=== PATIENT | female | born 1960 | race Caucasian/White ===

== ENCOUNTER 2022-09-07 21:39 | Inpatient (IN) | payer BC, MEDICAID ==
[2022-09-07] MEDS ORDERED: Adenosine 12 MG/4 ML SDV ONE (21:52)
[2022-09-07] MEDS ORDERED: Adenosine 6 MG/2 ML SDV IVPUSH ONE (21:58)
[2022-09-07] MEDS ORDERED: Diltiazem 25 MG/5 ML SDV IVPUSH STA (22:01)
[2022-09-07 22:13] LABS: BASOPHILS ABSOLUTE AUTO 0.03 K/mm3 (0.01-0.08); BASOPHILS PERCENT AUTO 0.1 % (0.1-1.2); EOSINOPHILS ABSOLUTE AUTO 0.07 K/mm3 (0.04-0.36); EOSINOPHILS PERCENT AUTO 0.3 (0.7-5.8); HEMATOCRIT 45.3 % (34.1-44.9); HEMOGLOBIN 14.7 gm/dl (11.2-15.7); IMMATURE GRAN ABSOLUTE AUTO 0.07 K/mm3 (0.00-0.10); IMMATURE GRAN PERCENT AUTO 0.3 % (<=1.0); LYMPHOCYTES ABSOLUTE AUTO 2.28 K/mm3 (1.18-3.74); LYMPHOCYTES PERCENT AUTO 9.6 % (19.3-51.7); MEAN CORPUSCULAR HEMOGLOBIN 29.4 pg (25.6-32.2); MEAN CORPUSCULAR HGB CONC 32.5 g/dl (32.2-35.5); MEAN CORPUSCULAR VOLUME 90.6 fl (79.4-94.8); MEAN PLATELET VOLUME 10.3 fl (9.4-12.3); MONOCYTES ABSOLUTE AUTO 0.56 K/mm3 (0.24-0.36); MONOCYTES PERCENT AUTO 2.4 % (4.7-12.5); NEUTROPHILS ABSOLUTE AUTO 20.65 K/mm3 (1.56-6.13); NEUTROPHILS PERCENT AUTO 87.3 % (34.0-71.1); PLATELET COUNT,PLT 375 K/mm3 (182-369); WHITE BLOOD CELL COUNT,WBC 23.66 K/mm3 (3.98-10.04)
[2022-09-07] MEDS ORDERED: Diltiazem 125 MG in Sodium Chloride 0.9% 100 ML IV SCH (22:15)
[2022-09-07] MEDS ORDERED: Sodium Chloride 0.9% 1,000 ML IV SCH (22:15)
[2022-09-07 22:24] LABS: INR 1.12; PROTHROMBIN TIME 11.9 SECONDS (9.7-12.0)
[2022-09-07 22:26] LABS: PTT,PARTIAL THROMBOPLSTIN TIME 26.5 SECONDS (21.7-31.4)
[2022-09-07 22:29] LABS: D-DIMER QUANTITATIVE < 0.19 mg/L (0.19-0.50)
[2022-09-07 22:34] LABS: SLIDE REVIEW ABNORMAL SMEAR
[2022-09-07 22:40] LABS: A/G RATIO 1.1 (1-2); ALANINE AMINOTRANSFERASE,ALT 29 U/L (14-59); ALKALINE PHOSPHATASE 88 U/L (46-116); ANION GAP 18.3 (5-15); ASPARTATE AMNIOTRANSFERASE,AST 19 U/L (15-37); BILIRUBIN TOTAL 0.3 mg/dL (0.2-1.0); BLOOD UREA NITROGEN,BUN 9 mg/dL (7-18); BUN/CREATININE RATIO 8.2 (14-18); C-REACTIVE PROTEIN <0.2 mg/dL (<1.0); CALCIUM 8.7 mg/dL (8.5-10.1); CARBON DIOXIDE,CO2 20 mEq/L (21-32); CHLORIDE,CL 103 mEq/L (98-107); CREATININE 1.1 mg/dL (0.55-1.02); ESTIMATED GFR 57 mL/min (>60); ETHANOL BLOOD MEDICAL 0.08 gm% (0.00); GLUCOSE RANDOM 219 mg/dL (70-99); MAGNESIUM 1.8 mg/dL (1.8-2.4); POTASSIUM,K 3.3 mEq/L (3.5-5.1); PROTEIN TOTAL,TP 7.7 g/dl (6.4-8.2); SODIUM,NA 138 mEq/L (136-145); TROPONIN I HIGH SENSITIVITY 11 pg/mL (<=51); TSH 5.153 uIU/mL (0.358-3.74)
[2022-09-07 22:48] LABS: ACETAMINOPHEN 0 ug/mL (10-30)
[2022-09-07 22:49] LABS: LACTIC ACID 6.2 mmol/L (0.4-2.0)
[2022-09-07] MEDS ORDERED: Sodium Chloride 0.9% 1,000 ML IV ONE (22:53)
[2022-09-07 23:27] LABS: APPEARANCE,URINE SLT CLOUDY (Clear); BILIRUBIN,URINE NEGATIVE (Negative); COLOR,URINE YELLOW (Yellow); GLUCOSE,URINE NEGATIVE (Negative); KETONES,URINE NEGATIVE (Negative); LEUKOCYTE ESTERASE,URINE NEGATIVE (Negative); NITRITE,URINE NEGATIVE (Negative); OCCULT BLOOD,URINE TRACE-INTACT (Negative); PH,URINE 5.5 (5.0-8.0); PROTEIN,URINE 2+ (Negative); UROBILINOGEN,URINE 0.2 (0.2-1.0)
[2022-09-07 23:28] LABS: CORONAVIRUS COVID-19 NAA NEGATIVE (NEGATIVE); INFLUENZA A NAA NEGATIVE (NEGATIVE); RESPIRATORY SYNCYTIAL VIR NAA NEGATIVE (NEGATIVE)
[2022-09-07 23:34] LABS: BARBITURATE SCREEN,URINE NEGATIVE (CUTOFF=200); BENZODIAZEPINES SCREEN,URINE NEGATIVE (CUTOFF=150); BUPRENORPHINE SCREEN,URINE NEGATIVE (CUTOFF=10); METHADONE SCREEN, URINE NEGATIVE (CUTOFF=200); METHAMPHETAMINES SCREEN, URINE PRESUMPTIVE POSITIVE (CUTOFF=500); OXYCODONE SCREEN,URINE NEGATIVE (CUT0FF=100); PROPOXYPHENE SCREEN,URINE NEGATIVE (CUTOFF=300); THC SCREEN,URINE 20 NG/ML NEGATIVE (CUTOFF=50)
[2022-09-07 23:36] LABS: AMPHETAMINES SCREEN, URINE PRESUMPTIVE POSITIVE (CUTOFF=500)
[2022-09-07 23:37] LABS: AMORPHOUS SEDIMENT,URINE MANY /hpf (NOT SEEN); BACTERIA,URINE FEW /hpf (FEW); MUCUS,URINE FEW /hpf (FEW); RBC,URINE 0-5 /hpf (0-5); SQUAMOUS EPITHELIAL CELLS,UR 0-5 /hpf (0-5); WBC,URINE 0-5 /hpf (0-5)
[2022-09-08] MEDS ORDERED: Adenosine 6 MG/2 ML SDV IVPUSH ONE (00:59)
[2022-09-08 04:27] LABS: ANION GAP 15.2 (5-15); BUN/CREATININE RATIO 13.3 (14-18); CALCIUM 9.1 mg/dL (8.5-10.1); CREATININE 0.9 mg/dL (0.55-1.02); EST CRCL DRUG DOSING (CG) 54.3 mL/min; POTASSIUM,K 4.2 mEq/L (3.5-5.1)
[2022-09-08] MEDS ORDERED: Heparin Sodium 5,000 Units/ML Vial IVPUSH ONE (04:59)
[2022-09-08] MEDS ORDERED: Heparin Sodium/D5W 25,000 UNITS/500 ML BAG IV SCH (05:00)
[2022-09-08] MEDS ORDERED: Diltiazem 125 MG in Sodium Chloride 0.9% 100 ML IV SCH ×2 (05:15→10:30)
[2022-09-08] MEDS ORDERED: Metoprolol Tartrate 5 MG/5 ML SDV IVPUSH ONE (11:34)
[2022-09-08] MEDS ORDERED: Ondansetron 4 MG Tab.DIS PO PRN (13:33)
[2022-09-08] MEDS ORDERED: Acetaminophen 325 MG Tab PO PRN (13:33)
[2022-09-08] MEDS: Sodium Chloride 0.9% 1,000 ML IV SCH (14:14)
[2022-09-08] MEDS: Temazepam 7.5 MG Cap PO PRN (20:01)
[2022-09-09] MEDS: Sodium Chloride 0.9% 1,000 ML IV SCH ×2 (02:34→15:19)
[2022-09-09 06:18] LABS: BASOPHILS ABSOLUTE AUTO 0.03 K/mm3 (0.01-0.08); BASOPHILS PERCENT AUTO 0.3 % (0.1-1.2); EOSINOPHILS ABSOLUTE AUTO 0.36 K/mm3 (0.04-0.36); EOSINOPHILS PERCENT AUTO 3.4 (0.7-5.8); HEMATOCRIT 43.7 % (34.1-44.9); HEMOGLOBIN 14.4 gm/dl (11.2-15.7); IMMATURE GRAN ABSOLUTE AUTO 0.01 K/mm3 (0.00-0.10); IMMATURE GRAN PERCENT AUTO 0.1 % (<=1.0); LYMPHOCYTES ABSOLUTE AUTO 3.61 K/mm3 (1.18-3.74); LYMPHOCYTES PERCENT AUTO 34.1 % (19.3-51.7); MEAN CORPUSCULAR HEMOGLOBIN 29.6 pg (25.6-32.2); MEAN CORPUSCULAR VOLUME 89.9 fl (79.4-94.8); MEAN PLATELET VOLUME 10.8 fl (9.4-12.3); MONOCYTES ABSOLUTE AUTO 1.37 K/mm3 (0.24-0.36); MONOCYTES PERCENT AUTO 12.9 % (4.7-12.5); NEUTROPHILS ABSOLUTE AUTO 5.22 K/mm3 (1.56-6.13); NEUTROPHILS PERCENT AUTO 49.2 % (34.0-71.1); PLATELET COUNT,PLT 286 K/mm3 (182-369); RED BLOOD CELL COUNT 4.86 M/mm3 (3.98-5.22)
[2022-09-09 06:30] LABS: A/G RATIO 1.2 (1-2); ALBUMIN 3.7 g/dl (3.4-5.0); ANION GAP 13.8 (5-15); BILIRUBIN TOTAL 0.9 mg/dL (0.2-1.0); BUN/CREATININE RATIO 11.3 (14-18); CREATININE 0.8 mg/dL (0.55-1.02); EST CRCL DRUG DOSING (CG) 69.13 mL/min; POTASSIUM,K 3.8 mEq/L (3.5-5.1); PROTEIN TOTAL,TP 6.9 g/dl (6.4-8.2)
[2022-09-09] MEDS: Metoprolol Tartrate 25 MG Tab PO SCH ×3 (07:42→21:40)
[2022-09-09] MEDS: Enoxaparin 40 MG/0.4 ML Syringe SUBCUT SCH (08:08)
[2022-09-09] MEDS ORDERED: LORazepam 0.5 MG Tab PO ONE (09:00)
[2022-09-09] MEDS: LORazepam 0.5 MG Tab PO SCH ×2 (15:34→21:34)
[2022-09-09] MEDS: Temazepam 7.5 MG Cap PO PRN (21:35)
[2022-09-10] MEDS: Metoprolol Tartrate 25 MG Tab PO SCH ×3 (05:13→21:34)
[2022-09-10] MEDS: LORazepam 0.5 MG Tab PO SCH ×2 (05:13→09:36)
[2022-09-10 05:57] LABS: BASOPHILS ABSOLUTE AUTO 0.04 K/mm3 (0.01-0.08); BASOPHILS PERCENT AUTO 0.4 % (0.1-1.2); EOSINOPHILS ABSOLUTE AUTO 0.37 K/mm3 (0.04-0.36); EOSINOPHILS PERCENT AUTO 3.3 (0.7-5.8); HEMATOCRIT 42.8 % (34.1-44.9); HEMOGLOBIN 14.2 gm/dl (11.2-15.7); IMMATURE GRAN ABSOLUTE AUTO 0.02 K/mm3 (0.00-0.10); IMMATURE GRAN PERCENT AUTO 0.2 % (<=1.0); LYMPHOCYTES ABSOLUTE AUTO 2.62 K/mm3 (1.18-3.74); LYMPHOCYTES PERCENT AUTO 23.2 % (19.3-51.7); MEAN CORPUSCULAR HEMOGLOBIN 29.6 pg (25.6-32.2); MEAN CORPUSCULAR HGB CONC 33.2 g/dl (32.2-35.5); MEAN CORPUSCULAR VOLUME 89.2 fl (79.4-94.8); MONOCYTES ABSOLUTE AUTO 1.33 K/mm3 (0.24-0.36); MONOCYTES PERCENT AUTO 11.8 % (4.7-12.5); NEUTROPHILS ABSOLUTE AUTO 6.92 K/mm3 (1.56-6.13); NEUTROPHILS PERCENT AUTO 61.1 % (34.0-71.1); PLATELET COUNT,PLT 307 K/mm3 (182-369)
[2022-09-10 06:13] LABS: A/G RATIO 1.1 (1-2); ALBUMIN 3.6 g/dl (3.4-5.0); ANION GAP 12.8 (5-15); BILIRUBIN TOTAL 0.6 mg/dL (0.2-1.0); BUN/CREATININE RATIO 13.8 (14-18); CALCIUM 8.9 mg/dL (8.5-10.1); CREATININE 0.8 mg/dL (0.55-1.02); EST CRCL DRUG DOSING (CG) 69.13 mL/min; POTASSIUM,K 3.8 mEq/L (3.5-5.1); PROTEIN TOTAL,TP 6.9 g/dl (6.4-8.2)
[2022-09-10] MEDS: Sodium Chloride 0.9% 1,000 ML IV SCH (06:18)
[2022-09-10] MEDS: Enoxaparin 40 MG/0.4 ML Syringe SUBCUT SCH (09:35)
[2022-09-11] MEDS: Metoprolol Tartrate 25 MG Tab PO SCH (05:43)
[2022-09-11] MEDS: Enoxaparin 40 MG/0.4 ML Syringe SUBCUT SCH (08:58)
== END 2022-09-11 11:15 | disposition home or self-care (01) | DRG 812 ==
LOC: JD.ED 21:39 → JD.ICU 09-08 12:14 → JD.MS 09-10 06:05
PROVIDERS: ADMIT Internal Medicine; ATTEND Internal Medicine
DX: T43.651A Poisoning by methamphetamines accidental (unintentional), initial encounter (principal); I47.1 Supraventricular tachycardia; E87.20 Acidosis, unspecified; J45.909 Unspecified asthma, uncomplicated; F17.210 Nicotine dependence, cigarettes, uncomplicated; I44.7 Left bundle-branch block, unspecified; D75.839 Thrombocytosis, unspecified; E87.6 Hypokalemia; R73.9 Hyperglycemia, unspecified; Z20.822 Contact with and (suspected) exposure to COVID-19; F41.9 Anxiety disorder, unspecified; Z98.890 Other specified postprocedural states; Z79.899 Other long term (current) drug therapy
CPT/HCPCS: 0241U; 36415; 71045; 71045-26; 80048; 80053; 80143; 80179; 80306; 80307; 81001; 82947; 83605; 83735; 83880; 84439; 84443; 84484; 85025; 85379; 85610; 85730; 86140; 93005; 93010; 93306; 96365; 96366; 96368; 96375; 96376; 99285; 99285-25; A9270-GY; J0153; J1644; J1650; J3490; J7030